=== PATIENT | male | born 1985 | race African-American/Black ===

== ENCOUNTER 2023-10-18 12:40 | Outpatient (CLI) | payer OTHER, SELFPAY ==
--- NOTE | ~2023-10-18 | MR_ITS ---
EXAMINATION: MR pituitary wo/w con DATE: 10/18/2023 14:02 INDICATION: Low testosterone. Essential primary hypertension. TECHNIQUE: Magnetic resonance imaging (MRI) of the brain and brainstem was performed without and with 18 mL MultiHance intravenous contrast. COMPARISON: None. FINDINGS: The pituitary is normal size with height of 4 mm. There is no intracranial hemorrhage, acut e infarction, or abnormal intracranial mass lesion. The ventricles are normal in size. The orbits are normal. The paranasal sinuses are clear. The mastoid air cells are normal. IMPRESSION: 1. Normal pituitary. Normal brain. Reviewed, dictated and finalized at location E.
--- NOTE | ~2023-10-18 | XR_ITS ---
EXAMINATION: XR femur LT min 2V DATE: 10/18/2023 13:03 INDICATION: MRI clearance TECHNIQUE: AP and lateral views of the left femur were obtained on overlapping proximal and distal im ages. COMPARISON: None. FINDINGS: Old healed fracture deformity at the mid to distal left femoral diaphysis which is fixed with a retro grade intramedullary chon with proximal distal interlocking screws. Bone alignment is near-anatomic. N o acute fractures identified. Left hip joint space is normal. Spaces appear normal at the left knee a nd hip. There are numerous metallic fragments/shrapnel in the soft tissues about and anterior to the fracture. No metallic densities in the posterior thigh about the expected location of the sciatic ner ve for femoral artery and vein. IMPRESSION: 1. Old healed internally fixed fracture of the proximal to mid left femoral diaphysis. 2. Numerous metallic fragments/shrapnel the soft tissues about the fracture and the more anterior thi gh. Reviewed, dictated and finalized at location A. IMPRESSION: 1. Old healed internally fixed fracture of the proximal to mid left femoral salvatore physis. 2. Numerous metallic fragments/shrapnel the soft tissues about the fracture and the more anterior thigh.
== END 2023-10-18 12:41 | disposition home or self-care (01) ==
LOC: ANHIMG 12:46
PROVIDERS: Visit Provider Internal Medicine
DX: R79.89 Other specified abnormal findings of blood chemistry (principal); I10 Essential (primary) hypertension
CPT/HCPCS: 70553; 73552; A9577